=== PATIENT | female | born 1955 | race Caucasian/White ===

== ENCOUNTER 2016-07-16 23:33 | Emergency (ER) | payer OTHER ==
[2016-07-16 23:49] VITALS: RESP 18; TEMP 97.1
[2016-07-17] MEDS ORDERED: Sodium Chloride 0.9% 1,000 ML PRIMARY IV ONE (00:17)
[2016-07-17] MEDS ORDERED: fentaNYL Inj 100 MCG/2 ML VIAL IVP ONE ×2 (00:18→02:04)
[2016-07-17 00:30] LABS: BASOPHILS # (AUTO) 0.08 10*3/UL; BASOPHILS % (AUTO) 0.6 % (0-1); EOSINOPHILS % (AUTO) 2.8 % (0-8); HEMATOCRIT 42.4 % (37.0-47.0); HEMOGLOBIN 14.5 g/dL (12.0-16.0); IMM GRAN % (AUTO) 0.3 % (0-5); IMM GRAN# (AUTO) 0.04 10*3/UL; LYMPHOCYTES # (AUTO) 2.15 10*3/uL; LYMPHOCYTES % (AUTO) 16.6 % (10-50); MEAN CORPUSCULAR HEMOGLOBIN 31.3 PG (27-31); MEAN CORPUSCULAR HGB CONC 34.2 g/dL (33-37); MEAN PLATELET VOLUME 10.8 FL (7.4-12.2); MONOCYTES # (AUTO) 1.28 10*3/UL (0.3-0.8); MONOCYTES % (AUTO) 9.9 % (5-15); NEUTROPHILS # (AUTO) 9.02 10*3/UL; NEUTROPHILS % (AUTO) 69.8 % (50-80); PLATELET MORPHOLOGY COMMENT NORMAL MORPHOLOGY (NORM); RDW COEFFICIENT OF VARIATION 14.2 % (11.5-14.5); RED BLOOD COUNT 4.63 10^6/uL (4.20-5.40); WHITE BLOOD COUNT 12.93 10^3/uL (4.8-10.8)
[2016-07-17 00:48] LABS: CREATININE 0.7 mg/dL (0.50-1.20); EST GLOMERULAR FILTRATION > 60 (>60 ml/min/1.73m(2))
[2016-07-17] MEDS ORDERED: LORazepam 2 MG/1 ML VIAL IVP ONE (01:06)
[2016-07-17] MEDS ORDERED: fentaNYL 75 MCG/HR PATCH TRANSDERM ONE (01:35)
[2016-07-17 01:40] LABS: ASPARTATE AMINO TRANSFERASE 22 IU/L (8-39); BILIRUBIN,TOTAL 0.6 mg/dL (0.3-1.2); BLOOD UREA NITROGEN 22 mg/dL (7-22); BUN/CREATININE RATIO 31.42 (6-20); CALCIUM 9.5 mg/dL (8.7-10.7); CHLORIDE 103 meq/L (98-112); GLUCOSE 369 mg/dL (78-110); POTASSIUM 4.2 meq/L (3.8-5.2); SODIUM 139 meq/L (135-145); TOTAL PROTEIN 6.8 g/dL (6.1-8.0)
[2016-07-17] MEDS ORDERED: HYDROcodone-APAP 5 MG -325 MG TABLET PO SCH (02:15)
--- NOTE | 2016-07-17 08:05 | PDOC ---
General Adult HPI - General Chief Complaint: General Medical Stated Complaint: PAINS ALL OVER Date Seen by Provider: 07/16/16 Time Seen by Provider: 23:55 Source: POSITIVE: Patient, Other (Caregiver) Exam Limitations: POSITIVE: No limitations Nurse's Notes Reviewed & Considered: Yes - History of Present Illness Initial Comment: The patient is a 60-year-old female from [place]. She is in [place] with her post acute care registered nurse visiting some friends. Patient has a history of congenital deafness and communicates with her caregiver through sign language. Patient has a history of diabetes mellitus and has had a below the knee amputation on the right for "bad circulation". Patient also has a history of diabetic neuropathy and chronic pain for which she takes Ringgold and fentanyl patches. Caregiver states that this evening the patient began to complain of increased pain" all over"but especially to her hands and feet. No fevers or chills. No vomiting or diarrhea or other GI or complaints. No rashes or skin changes. No focal motor deficits. Have you received a tetanus shot in the past 10 years?: Unknown Body Location Affected: REPORTS: Other (As above) Timing: REPORTS: Gradual Duration: <24 hours Severity: Moderate Quality: REPORTS: "Pain" (General eyes, especially in hands and legs; history of chronic pain disorder) Context: REPORTS: None Modifying Factors: improves with: Nothing Similar Symptoms Previously: Yes Recent Care Received: REPORTS: Denies Any Prior Injuries Related to Current Complaint?: No - Patient Home Medications Home Medications: Home Medications Fentanyl 1 each TD Q72HR 07/16/16 Hydrocodone/Acetaminophen [Ringgold 7.5-325 Tablet] 1 tab PO Q4H PRN 07/16/16 Insulin Regular, Human [Humulin R] 500 unit SQ DAILY 07/16/16 Liraglutide [Victoza 3-David] 0.6 mg SQ DAILY 07/16/16 Lisinopril 5 mg PO DAILY 07/16/16 Methocarbamol [Robaxin] 500 mg PO DAILY 07/16/16 Pregabalin [Lyrica] 50 mg PO DAILY 07/16/16 Hydrocodone Bit/Acetaminophen [Ringgold 10-325 Tablet] 1 tab PO Q4H PRN #25 tab 09/28 - Patient Allergies Allergies/Adverse Reactions: Allergies Allergy/AdvReac Type Severity Reaction Status Date / Time adhesive tape Allergy RASH Verified 07/16/16 23:41 Past Medical History - heen HEENT History: Deaf Additional HEENT History: DEAF SINCE Cardiovascular History: Hypertension Respiratory History: Denies History Gastrointestinal History: Denies History Genitourinary History: Denies History Endocrine History: Denies History Musculoskeletal History: Amputation Additional Musculoskeletal History: RIGHT LEG, NECK FUSION Neurological History: Denies History Blood Disorders: Denies History Psychiatric History: Denies History Female Reproductive History: Denies History Obstetrical History: Denies History Cancer History: Denies History In Past Year Been Physically Harmed or Verbally Threatened: No History of MDRO: No Tobacco Use: Never Smoker Alcohol Use: None Substance Use Type: None Previous Surgical History: No Significant Family History: No pertinent family hx Past Medical History Reviewed: Reviewed - No Changes ROS - Limitations ROS Limitations: Language Barrier (Patient definite. Caregiver communicated with patient by sign language) Constitution: REPORTS: Denies Symptoms Cardiovascular: REPORTS: Denies Cardiac Symptoms Respiratory: REPORTS: Denies Resp Symptoms Neurological: REPORTS: Denies Neuro Symptoms Gastrointestinal: REPORTS: Denies GI Symptoms Endocrine: REPORTS: Denies Symptoms Musculoskeletal: REPORTS: Muscle Aches Genitourinary: REPORTS: Denies Symptoms Eyes: REPORTS: Denies Symptoms ENT: REPORTS: Denies Symptoms Skin: REPORTS: Denies Skin Symptoms Lympathic: REPORTS: Denies Lympathic Symptoms Immunologic: POSITIVE: Denies Symptoms Psychiatric: POSITIVE: Denies Psych Symptoms General Adult Exam - General Appearance General Appearance: POSITIVE: Alert, Cooperative, No Acute Distress, No Evidence of Trauma - HEENT HEENT: POSITIVE: Head Inspection Nml, Eyes Inspection Nml, Ears Inspection Nml, Nose Inspection Nml, Oral/Dental Inspect. Nml, Pharynx Inspect. Nml, PERRL, EOMI - Pupils Pupil Size: 3 mm: Bilateral (PERRLA) - Neck Neck: POSITIVE: Normal Inspection, Thyroid Normal - Respiratory Respiratory: POSITIVE: No Respiratory Distress, Breath Sounds Normal, Chest Non- Tender - Cardiovascular Cardiovascular: POSITIVE: Regular Rate & Rhythm, No Murmur, No Gallop, PMI Normal Peripheral Pulses: Radial (R): 2+, Radial (L): 2+, Dorsalis-pedis (L): 2+ - Abdomen Abdomen: Soft: (All Quadrants), Normal Bowel Sounds: (All Quadrants), Denies Tenderness: (All Quadrants), No Splenomegaly: (All Quadrants), No Hepatomegaly: (All Quadrants), No Guarding: (All Quadrants), No Rebound: (All Quadrants), No Palpable Pulse: (All Quadrants), No Palpabale Mass: (All Quadrants), No Distention: (All Quadrants), No Rigidity: (All Quadrants) - Back Back: POSITIVE: Normal Inspection - Skin Skin: POSITIVE: Normal Color, Warm, Dry, No Rash - Extremities Extremity: Non-Tender: (All Extremities), Normal ROM: (All Extremities), Normal Inspection: (All Extremities) Additional Extremities Details: Status post [id number] amputation right leg - Neurological / Psychological Neurological: POSITIVE: Oriented X3, proofsheet corrector Normal As Tested, Motor Normal, Sensation Normal, 5, 6 Reflexes: Patellar (R): 2+, Patellar (L): 2+ General Adult Progress - Results Reviewed by me Lab Results Reviewed: Yes Lab Results:: Laboratory Results 07/17/16 Range/Units 00:27 WBC 12.93 H (4.8-10.8) 10^3/uL RBC 4.63 (4.20-5.40) 10^6/uL Hgb 14.5 (12.0-16.0) g/dL Hct 42.4 (37.0-47.0) % MCV 91.6 (81-99) FL MCH 31.3 H (27-31) PG MCHC 34.2 (33-37) g/dL RDW Std Deviation 46.5 (39-50) fL RDW Coeff of Andrew 14.2 (11.5-14.5) % Plt Count 291 (140-350) 10*3/uL MPV 10.8 (7.4-12.2) FL Immature Gran % (Auto) 0.3 (0-5) % Neut % (Auto) 69.8 (50-80) % Lymph % (Auto) 16.6 (10-50) % [place] % (Auto) 9.9 (5-15) % Eos % (Auto) 2.8 (0-8) % Baso % (Auto) 0.6 (0-1) % Immature Gran # (Auto) 0.04 10*3/UL Neut # (Auto) 9.02 10*3/UL Lymph # (Auto) 2.15 10*3/uL [place] # (Auto) 1.28 H (0.3-0.8) 10*3/UL Eos # (Auto) 0.36 10*3/UL Baso # (Auto) 0.08 10*3/UL WBC Morphology Comment Normal morphology (NORM) Plt Morphology Comment Normal morphology (NORM) RBC Morph Comment Normal morphology (NORM) Sodium 139 (135-145) meq/L Potassium 4.2 (3.8-5.2) meq/L Chloride 103 (98-112) meq/L Carbon Dioxide 22 L (23-33) meq/L Anion Gap 14 (5-20) BUN 22 (7-22) mg/dL Creatinine 0.7 (0.50-1.20) mg/dL Estimated GFR > 60 (>60 ml/min/1.73m(2)) BUN/Creatinine Ratio 31.42 H (6-20) Glucose 369 H (78-110) mg/dL Calculated Osmolality 305.0 H (267-292) mOsm/kg Calcium 9.5 (8.7-10.7) mg/dL Total Bilirubin 0.6 (0.3-1.2) mg/dL AST 22 (8-39) IU/L ALT 28 (9-52) IU/L Alkaline Phosphatase 171 H (38-126) IU/L Total Protein 6.8 (6.1-8.0) g/dL Albumin 4.0 (3.5-4.8) g/dL Globulin 2.8 (2.50-4.10) g/dL Albumin/Globulin Ratio 1.40 (1.3-2.0) mg/g - Patient's Progress Pain Medication Addressed: POSITIVE: Yes (Patient given a total of 100 g of fentanyl in ER.) School/Work Release Addressed: POSITIVE: Not Applicable Re-Examine Time: 02:10 Status: POSITIVE: Improved, Re-Examined Antibiotics Given: No - Consult Consult (If Yes, Name of Consulting MD & Time Called): No Counseled: POSITIVE: Patient, RE: Lab Results, RE: DX, RE: Need for F/U, Other ( Caregiver) Patient Care Time - Estimated PCT Patient Care Time (In Minutes): 62 Vital Signs - Recent Vital Signs Vital Signs: Vital Signs (Last 8 hours) Resp Pulse Ox 07/17/16 02:35 18 92 - VS Reviewed Vital Signs Reviewed: Yes Discharge Clinical Impression: Chronic pain disorder Discharge Disposition: Discharged to Home Condition: Stable Prescriptions / Orders: Hydrocodone Bit/Acetaminophen [Ringgold 10-325 Tablet] 1 tab PO Q4H PRN #25 tab PRN Reason: Pain Patient Instructions Given at Discharge: Chronic Pain (ED) Additional Instructions: Follow-up with your physician in [place]. Ringgold, one every 6 hours as necessary for pain. Return as necessary. Follow Up With: NOT IN TABLE, [Primary Care Provider] - (Instructions as above. Follow-up with your physician [place]. Return here as necessary.)
== END 2016-07-17 02:35 | disposition home or self-care (01) ==
LOC: ER 23:33
DX: G89.4 Chronic pain syndrome (principal); M79.641 Pain in right hand; M79.605 Pain in left leg; M79.604 Pain in right leg; E11.40 Type 2 diabetes mellitus with diabetic neuropathy, unspecified
CPT/HCPCS: 80053; 85025; 96361; 96374; 96375; 96376; 99283 ×2; J3010; J2060; J7030